=== PATIENT | female | born 1955 | race Caucasian/White ===

== ENCOUNTER 2017-02-14 21:20 | Emergency (ER) | payer MEDICARE ==
[2017-02-14] MEDS ORDERED: CITRACAL + D E1 EAC1 PO (21:52)
[2017-02-14] MEDS ORDERED: CENTRUM COMPLE1 EAC1 PO (21:52)
[2017-02-14 22:59] LABS: ALB/GLOB RATIO 0.9 (0.8-2.0); ALBUMIN 3.4 g/dl (3.5-5.0); ALKALINE PHOSPHATASE 80 U/L (33-138); ALT/SGPT 18 U/L (12-78); BILIRUBIN,TOTAL 0.3 mg/dl (0-1.5); BLOOD UREA NITROGEN 11 mg/dl (6-24); CALCIUM 8.7 mg/dl (8.5-10.5); CARBON DIOXIDE-VENOUS 21 mmol/L (22-32); CHLORIDE 119 mmol/l (96-110); CREATININE 0.93 mg/dl (0.50-1.10); GLUCOSE 100 mg/dL (70-110); SODIUM 149 mmol/L (135-145); eGFR VALUE FOR BLACK 76 mL/Min
[2017-02-14 23:05] LABS: ANION GAP 14 mmol/L (0-20); AST/SGOT 26 U/L (10-40); POTASSIUM 4.5 mmol/L (3.7-5.1)
[2017-02-14 23:25] LABS: BASO % 0.4 % (0-2); EOS % 1.7 % (0-7); EOSINOPHIL ABSOLUTE COUNT 0.2 tho/cmm (0.0-0.7); HCT-HEMATOCRIT 38.6 % (34.0-49.0); HGB-HEMOGLOBIN 13.3 gm/dl (12.0-15.5); IMMATURE GRANULOCYTES ABSOLUTE 0.01 tho/cmm (0-0.03); IMMATURE GRANULOCYTES PERCENT 0.1 % (0-0.3); LYMPH % 10.2 % (20-45); MCH (MEAN CORPUSCULAR HGB) 31.8 pg (28.0-32.0); MCHC MEAN CORPUSCULAR HGB CONC 34.5 % (32.0-36.0); MCV (MEAN CELL VOLUME) 92.3 fl (82.0-96.0); MEAN PLATELET VOLUME 9.1 cmc (9.4-12.4); MONO % 3.4 % (0-12); MONOCYTE ABSOLUTE COUNT 0.3 tho/cmm (0.0-1.2); NEUTROPHIL ABSOLUTE COUNT 8.2 tho/cmm (1.6-8.0); NEUTROPHIL-AUTOMATED 8.2 tho/cmm (1.6-8.0); NEUTROPHILS % 84.2 % (40-80); PLATELET COUNT 231 tho/cmm (150-450); RED BLOOD COUNT 4.18 mil/cmm (4.00-5.20); RED CELL DISTRIBUTION WIDTH 12.8 % (12.4-16.4); WHITE BLOOD COUNT 9.8 tho/cmm (4.0-10.0)
== END 2017-02-14 23:59 ==
LOC: EDMED 21:20
PROVIDERS: Emergency Medicine Emergency Medical Services
DX: E86.0 Dehydration (principal); J44.9 Chronic obstructive pulmonary disease, unspecified; F17.200 Nicotine dependence, unspecified, uncomplicated; Z85.118 Personal history of other malignant neoplasm of bronchus and lung
CPT/HCPCS: J7030